=== PATIENT | female | born 1955 | race Caucasian/White ===

== ENCOUNTER 2016-12-03 08:13 | Emergency (ER) | payer SELFPAY ==
[~2016-12-03 08:13] MED LIST: ALBUTEROL2.5 MG/3 M IH; BUPROPION HCL100 M1 PO; BUPROPION XL300 M1 PO; CENTRUM SILVER1 EAC6 PO; DOXYCYCLINE HY100 MG PO; EVISTA60 M1 PO; FISH OIL 1,0001 EA10 PO; HYDROCHLOROTHIA25 M1 PO; LIPITOR10 MG PO; LISINOPRIL40 M1 PO; LOVASTATIN10 M1 PO; MELOXICAM7.5 M1 PO; NEURONTIN300 M1 PO; NORCO 5-325 TA1 EACH PO; OMEPRAZOLE20 M3 PO; PROTONIX20 M2 PO; PROTONIX40 MG PO; TRAMADOL HCL50 M2 PO; ULTRAM50 M1 PO; VENTOLIN HFA18 G2 IH; WELLBUTRIN XL300 M2 PO; ZESTORETIC 20-1 EAC2 PO
[2016-12-03] MEDS ORDERED: NEURONTIN300 M1 PO (08:21)
[2016-12-03] MEDS ORDERED: ADULT LOW DOSE81 M1 PO (08:22)
[2016-12-03] MEDS ORDERED: NORCO 5-325 TA1 EACH PO (09:11)
== END 2016-12-03 09:36 ==
LOC: EDMED 08:13
DX: S62.397A Other fracture of fifth metacarpal bone, left hand, initial encounter for closed fracture (principal); M32.9 Systemic lupus erythematosus, unspecified; Z87.891 Personal history of nicotine dependence; X50.1XXA Overexertion from prolonged static or awkward postures, initial encounter; Y92.22 Religious institution as the place of occurrence of the external cause